=== PATIENT | female | born 1970 | race Caucasian/White ===

== ENCOUNTER 2017-06-02 02:50 | Emergency (ER) | payer SELFPAY ==
[~2017-06-02] VITALS: Ht 170.2 cm; Wt 87.0 kg
[2017-06-02] MEDS ORDERED: ONDANSETRON 2MG/ML, 2ML IVPush ONE (03:30)
[2017-06-02] MEDS ORDERED: SODIUM CHLORIDE FLUSH 10ML SYR IVF ONE (03:30)
[2017-06-02] MEDS ORDERED: MORPHINE SULFATE 4 MG/ML, 1ML IVPush PRN (03:30)
[2017-06-02] MEDS ORDERED: SODIUM CHLORIDE 0.9% 1,000ML IVBOLUS ONE (03:30)
[2017-06-02 03:47] LABS: ASPARTATE AMINO TRANSFERASE 10 U/L (15-37); BLOOD UREA NITROGEN 10 mg/dL (7-18)
[2017-06-02 03:55] LABS: PATH.CAST-FLAG NOT PRESENT; SPERM-FLAG NOT PRESENT; SRC-FLAG NOT PRESENT; XTAL-FLAG NOT PRESENT; YLC-FLAG NOT PRESENT
[2017-06-02] MEDS ORDERED: ONDANSETRON 2MG/ML, 2ML ONE (03:56)
[2017-06-02] MEDS ORDERED: MORPHINE SULFATE 4 MG/ML, 1ML ONE (03:56)
[2017-06-02 04:08] VITALS: BP 136/84
== END 2017-06-02 04:57 | disposition home or self-care (01) ==
LOC: ED 03:25
DX: N83.201 Unspecified ovarian cyst, right side (principal); R10.2 Pelvic and perineal pain; Z87.891 Personal history of nicotine dependence
CPT/HCPCS: 36415; 76830; 80053; 81001; 84702; 85025; 87086; 96361; 96374; 96375; 99285; J2405; J7030

== ENCOUNTER 2018-01-19 23:28 | Emergency (ER) | payer SELFPAY ==
[~2018-01-19] VITALS: Ht 170.2 cm; Wt 85.3 kg
[2018-01-20] MEDS ORDERED: IBUPROFEN 200 MG TABLET PO ONE
[2018-01-20] MEDS ORDERED: ONDANSETRON ODT 4 MG PO ONE
[2018-01-20] MEDS ORDERED: HYDROcodone/APAP 5/325 TABLET PO ONE
[2018-01-20] MEDS ORDERED: ONDANSETRON ODT 4 MG ONE (00:21)
[2018-01-20] MEDS ORDERED: IBUPROFEN 200 MG TABLET ONE ×2 (00:21→00:22)
[2018-01-20] MEDS ORDERED: HYDROcodone/APAP 5/325 TABLET ONE (00:22)
[2018-01-20 00:26] LABS: BASOPHILS # (AUTO) 0.03 x10^3/uL (0-0.1); BASOPHILS % (AUTO) 0 % (0-1); EOSINOPHILS # (AUTO) 0.11 x10^3/uL (0-0.4); EOSINOPHILS % (AUTO) 1 % (1-7); LYMPHOCYTES # (AUTO) 3.35 x10^3/uL (1-3.4); LYMPHOCYTES % (AUTO) 29 % (22-44); MD NO; MEAN CORPUSCULAR HEMOGLOBIN 26.2 pg (27.0-34.8); MEAN CORPUSCULAR HGB CONC 32.9 g/dL (32.4-35.8); MEAN CORPUSCULAR VOLUME 79.4 fL (80-100); MEAN PLATELET VOLUME 9.5 fL (7.4-10.4); MONOCYTES # (AUTO) 0.58 x10^3/uL (0.2-0.8); MONOCYTES % (AUTO) 5 % (2-9); NEUTROPHILS # (AUTO) 7.47 x10^3/uL (1.8-6.8); NEUTROPHILS % (AUTO) 65 % (42-75); PLATELET COUNT 297 x10^3/uL (130-400); RED BLOOD COUNT 4.96 x10^6/uL (3.82-5.3); RED CELL DISTRIBUTION WIDTH 13.4 % (9.6-15.2)
[2018-01-20 00:37] LABS: ALBUMIN 3.4 g/dL (3.4-5.0); ANION GAP 10 mmol/L (5-15); CALCIUM 8.1 mg/dL (8.5-10.1); CHLORIDE 103 mmol/L (98-107)
[2018-01-20 00:38] LABS: HCG UR SG > 1.045 (1.003-1.030); MICROSCOPIC INDICATED
[2018-01-20 00:42] LABS: ALANINE AMINOTRANSFERASE 13 U/L (12-78); ALKALINE PHOSPHATASE 131 U/L (45-117); BILIRUBIN,TOTAL 0.4 mg/dL (0.2-1.0); TOTAL PROTEIN 7.5 g/dL (6.4-8.2)
[2018-01-20 00:49] LABS: CULTURE INDICATED? YES
[2018-01-20 01:35] VITALS: BP 119/70
== END 2018-01-20 01:54 | disposition home or self-care (01) ==
LOC: ED 23:48
DX: N83.201 Unspecified ovarian cyst, right side (principal); G89.29 Other chronic pain; R10.2 Pelvic and perineal pain; J45.909 Unspecified asthma, uncomplicated; Z87.891 Personal history of nicotine dependence
CPT/HCPCS: 36415; 80053; 81001; 81025; 83690; 85025; 87086; 99284; Q0162

== ENCOUNTER 2018-04-06 13:49 | Emergency (ER) | payer SELFPAY ==
[~2018-04-06] VITALS: Ht 170.2 cm; Wt 84.2 kg
[2018-04-06] MEDS ORDERED: LIDOCAINE-MPF 1%, 5ML ONE (14:29)
[2018-04-06] MEDS ORDERED: DIPH,PERTUSS(ACELL),TET VAC/PF 0.5 ML IM-VACC ONE ×2 (14:29→14:30)
[2018-04-06] MEDS ORDERED: LIDOCAINE-MPF 1%, 5ML INFIL ONE (14:30)
[2018-04-06] MEDS ORDERED: BACITRACIN ZINC OINT 500U/GM, 0.9 GM ONE (15:26)
[2018-04-06 15:32] VITALS: BP 119/77
== END 2018-04-06 15:38 | disposition home or self-care (01) ==
LOC: ED 15:32
DX: L03.011 Cellulitis of right finger (principal); J45.909 Unspecified asthma, uncomplicated
CPT/HCPCS: 10060; 90471; 90715

== ENCOUNTER 2018-08-31 00:27 | Emergency (ER) | payer OTHER ==
[~2018-08-31] VITALS: Ht 165.1 cm; Wt 83.3 kg
[2018-08-31 00:29] VITALS: BP 159/89
== END 2018-08-31 02:35 | disposition home or self-care (01) ==
LOC: ED 01:33
DX: M65.4 Radial styloid tenosynovitis [de Quervain] (principal); J45.909 Unspecified asthma, uncomplicated; Z87.891 Personal history of nicotine dependence
CPT/HCPCS: 29125; 99283; J7512